=== PATIENT | female | born 1980 | race Caucasian/White ===

== ENCOUNTER → 2021-11-22 14:56 | Outpatient (CLI) | payer MEDICAID, SELFPAY ==
[2021-11-22 16:05] LABS: Free Thyroxine Index 2.5 ug/dL (5.93-13.13); T4 (Thyroxine) 8.2 ug/dl (5.53-11.0); Triiodothryronine (T3) Uptake 31 % (23.5-40.5)
[2021-11-22 16:18] LABS: Thyroid Stimulating Hormone 2.49 uIU/mL (0.465-4.68)
== END ==
PROVIDERS: Visit Provider Obstetrics & Gynecology
DX: N91.2 Amenorrhea, unspecified (principal)
CPT/HCPCS: 36415; 84436; 84443; 84479

== ENCOUNTER → 2021-11-30 08:35 | Outpatient (CLI) | payer MEDICAID, SELFPAY ==
--- NOTE | 2021-11-30 08:39 | US_ITS ---
FINAL REPORT CLINICAL HISTORY: abnormal vaginal bleeding FINDINGS: Transvaginal sonographic images of the pelvis were obtained. The uterus measures 9.4 x 5.9 x 4.2 cm. The endometrium measures 7 mm, which is within normal limits. There is a 1.6 cm submucosal fibroid. There is a small nabothian cyst. The right ovary measures 3.0 cm in length and left ovary measures 4.2 cm in length. Normal blood flow seen to the ovaries. There is a complex hypoechoic structure in the left ovary that measures about 2.8 cm in diameter and may represent a hemorrhagic cyst or endometrioma. There are some cysts or follicles in the right ovary. There is no evidence of free fluid. IMPRESSION: Complex hypoechoic structure in the left ovary, hemorrhagic cyst versus endometrioma. Consider follow-up in 6-10 weeks to ensure resolution. Uterine fibroid. Reviewed, Interpreted and Dictated by Ba Reyes MD Transcribed by Cece Yost Authenticated and [facility]
--- NOTE | 2021-11-30 09:05 | MM_ITS ---
PROCEDURE INFORMATION: Exam: US Right Breast, Complete MG Bilateral Diagnostic Breast Tomosynthesis Exam date and time: 11/30/2021 8:34 AM Age: 41 years old Clinical indication: Right breast palpable lump TECHNIQUE: Imaging protocol: Complete ultrasound of all four quadrants of the Right breast and the retroareolar regions, including ultrasound of the axilla when performed. Bilateral Diagnostic tomosynthesis and 2D mammography including computer-aided detection (CAD) when performed. Unilateral or bilateral exam. COMPARISON: No relevant prior studies available. FINDINGS: MAMMOGRAPHY: The breasts are extremely dense, which lowers the sensitivity of mammography. A skin marker was placed over the palpable abnormality in the right approximate 9 o'clock axis. Dense somewhat nodular parenchyma is identified in the region of palpable concern. There is no stellate mass, architectural distortion or suspicious microcalcifications in either breast to suggest malignancy. No skin thickening or axillary adenopathy. ULTRASOUND: Sonographic images of the right approximate 9 o'clock axis where the patient reports a palpable abnormality demonstrates 2 adjacent hypoechoic well-circumscribed solid masses measuring 1.5 x 1.2 x 1.4 cm and 0.7 x 0.8 x 0.5 cm respectively. In the right 10 o'clock axis 4 cm from the nipple is a third hypoechoic solid mass measuring 0.8 x 0.7 x 0.5 cm. Few scattered subcentimeter cysts.. No architectural distortion or acoustical shadowing. IMPRESSION: Palpable abnormality in the right breast corresponds to 2 adjacent probably benign solid masses, likely reflecting focal fibroadenomas. A third nonpalpable solid masses also identified. A six-month follow-up targeted right breast ultrasound is recommended to ensure stability of the 3 solid masses identified unless otherwise clinically indicated. ASSESSMENT: BI-RADS Category 3: Probably benign
== END ==
PROVIDERS: Visit Provider Obstetrics & Gynecology
DX: N93.9 Abnormal uterine and vaginal bleeding, unspecified (principal); N63.10 Unspecified lump in the right breast, unspecified quadrant
CPT/HCPCS: 76641; 76830; 77062; 77066; G0279

== ENCOUNTER → 2021-12-20 16:13 | Outpatient (CLI) | payer MEDICAID, SELFPAY ==
--- NOTE | 2021-12-20 16:20 | XR_ITS ---
FINAL REPORT CLINICAL HISTORY: RIGHT WRIST PAIN, BUMP ON POSTERIOR SIDE OF WRIST FINDINGS: RIGHT HAND Three views demonstrate no acute fracture or dislocation. The visualized joint spaces are normally aligned. The soft tissues are unremarkable. IMPRESSION: No acute bony abnormality. Reviewed, Interpreted and Dictated by Beka Berger III, MD Transcribed by Vianey Mitchell Authenticated and [facility]
== END ==
PROVIDERS: PCP Nurse Practitioner Family; Visit Provider Nurse Practitioner Family
DX: M25.531 Pain in right wrist (principal)
CPT/HCPCS: 73130

== ENCOUNTER → 2022-01-26 12:57 | Outpatient (CLI) | payer MEDICAID, SELFPAY ==
--- NOTE | 2022-01-26 12:58 | US_ITS ---
FINAL REPORT CLINICAL HISTORY: 8 week follow up COMPARISON: 11/30/2021 FINDINGS: Transvaginal sonographic images of the pelvis were obtained. The uterus measures 9.4 x 4.3 x 6.6 cm. Again identified is a uterine fibroid measuring up to 1.3 cm. The endometrium measures 8 mm in thickness, within normal limits. The right ovary measures 3.2 x 2.8 x 1.3 cm. The left ovary measures 3.8 x 2.2 x 2.3 cm. The left ovarian cyst seen on the prior exam has resolved. There is a small complex cyst in the right ovary measuring 1.6 cm. IMPRESSION: Uterine fibroid again identified. Left ovarian cyst has resolved. Complex cyst right ovary. Reviewed, Interpreted and Dictated by Beka Berger III, MD Transcribed by Analy Guerrero Authenticated and . [facility]
== END ==
PROVIDERS: PCP Nurse Practitioner Family; Visit Provider Obstetrics & Gynecology
DX: N83.209 Unspecified ovarian cyst, unspecified side (principal)
CPT/HCPCS: 76830

== ENCOUNTER → 2022-03-11 11:01 | Outpatient (CLI) | payer MEDICAID, SELFPAY ==
[2022-03-11 12:19] LABS: Basophils # 0.1 K/mm3 (0-0.2); Basophils % 0.8 % (0.1-2.0); Eosinophils # 0.3 K/mm3 (0.0-0.4); Eosinophils % 4.2 % (0.1-12.0); Hematocrit 41.3 % (37.0-47.0); Hemoglobin 13.6 g/dL (12.2-16.2); Lymphocytes # 1.7 K/mm3 (0.7-4.5); Lymphocytes % 21.4 % (10-50); Mean Platelet Volume 7.7 fl (7.4-10.4); Monocytes # 0.4 K/mm3 (0.1-1.0); Monocytes % 5.6 % (1.7-9.3); Neutrophils # 5.3 K/mm3 (1.8-7.8); Neutrophils % 67.9 % (37.0-80.0); Platelet Count 302 K/mm3 (142-424); Red Blood Count 4.39 M/mm3 (4.20-5.40); Red Cell Distribution Width 13.5 % (11.5-17.5); White Blood Count 7.8 K/mm3 (4.8-10.8)
[2022-03-11 12:35] LABS: Alanine Aminotransferase 13 U/L (12-78); Albumin Level 4.4 g/dl (3.5-5.0); Albumin/Globulin Ratio 1.8 (1.1-1.8); Alkaline Phosphatase 56 U/L (38-126); Anion Gap 12.5 mEq/L (5-15); Aspartate Amino Transferase 18 U/L (14-36); Bilirubin,Total 0.2 mg/dl (0.2-1.3); Blood Urea Nitrogen 16 mg/dl (7-17); Calcium 9.7 mg/dl (8.4-10.2); Carbon Dioxide 25 mmol/L (22.0-30.0); Chloride 105 mmol/L (98-107); Estimated Glomerular Filt Rate 93 ml/min (>60); GFR (African American) 112 ML/MIN (>60); Globulin 2.5 g/dL (1.3-3.2); Glucose 78 mg/dl (74-100); Potassium 4.5 mmoL/L (3.5-5.1); Sodium 138 mmol/L (136-145); Total Protein,Serum 6.9 g/dl (6.3-8.2)
[2022-03-11 13:01] LABS: HCG,Quantitative < 2 mIU/ml (0-5.42)
== END ==
PROVIDERS: PCP Nurse Practitioner Family; Visit Provider Obstetrics & Gynecology
DX: Z01.812 Encounter for preprocedural laboratory examination (principal); D25.9 Leiomyoma of uterus, unspecified
CPT/HCPCS: 36415; 80053; 84702; 85025

== ENCOUNTER 2022-03-16 06:03 | Day surgery (SDC) | payer MEDICAID, SELFPAY ==
[2022-03-15 09:49] VITALS: BMI 22.0
[2022-03-16] VITALS (10 sets, daily range): BP systolic 107–140; BP diastolic 65–78; PULSE 68–94; RESP 12–18; TEMP 36.4–43; O2SAT 96–100
--- NOTE | 2022-03-16 07:54 | EXP.ANES.CKL ---
[facility] Disclaimer: The information contained in this section may have been updated after the patient was seen, as this information can be updated by other users. Medical History Dysmenorrhea Menorrhagia Ovarian cyst Request for sterilization Uterine fibroid Surgical History H/O LEEP No significant past surgical history Family History Other Family history of asthma History of uterine cancer Social History Smoking Status: Current every day smoker tobacco type: e-cigarettes alcohol intake: never substance use type: former substance user, crack/cocaine and heroin current occupational status: employed Travel in the last 8 weeks: None [facility] Anesthesia Checklist Patient Identification Patient Identification: Arm Band and Verbal (Name & ) Structural Data Admitted From: Home Planned Operative Procedure/s: Laparscopic Salpingectomy/ Hysteroscopy Consent for Planned Operative Procedure(s) Verified: Yes Verified Documents: Surgical Consent NPO Status Verified Time NPO: 00:00 Chart Verification Results Verified: CBC and HCG Additional verifications Anesthesia Reactions: No Hx Blood Transfusions: No Blood Transfusion Reaction: No Airway Assessment C-Spine Mobility Assessed: Yes TMJ Mobility Assessed: Yes Dentition: Poor Dentition Neurological Assessment Level of Consciousness: Awake Anesthesia Plan Anesthesia Risk discussed: Yes ASA Class: II Anesthesia Type: General
--- NOTE | 2022-03-16 09:57 | EXP.OP.NOTE ---
Date of procedure: 03/16/22 Pre-op Diagnosis:: 1. Abnormal uterine bleeding 2. Menorrhagia? ? 3. Dysmenorrhea 4. Uterine fibroid 5. Ovarian cyst 6. Complete with childbearing, desires permanent sterilization ? ? Post-op Diagnosis:: 1. Abnormal uterine bleeding 2. Menorrhagia? ? 3. Dysmenorrhea 4. Uterine fibroid 5. Ovarian cyst 6. Complete with childbearing, desires permanent sterilization Procedure performed:: 1. Laparoscopy, bilateral salpingectomy 2. Hysteroscopy, D&C with Myosure and Novasure endometrial ablation Surgeon:: Tracy Llamas DO Commercial Crabber(s):: N/a COMMERCIAL CRABBER:: Yevgeniy Jade Anesthesia: GETA Estimated blood loss (mL): 5 Clinical Note:: Ms Luisa Araiza is a 41 yo P1021 who presents to [facility] for scheduled procedure. She reports periods are regular, monthly. Flow lasts about 4 days but is heavy and painful. She also complains of spotting the week before her period and sometimes after intercourse... this bleeding pattern has been present for about 2 years. She uses condoms for contraception. She tried Mirena IUD in the past and bled for one year straight. She then tried Paragard IUD and continued to bleed. She is complete with child bearing. Ultrasound 01/26/22 demonstrated?uterus measuring 9.4 x 4.3 x 6.6 cm.? Again identified is a uterine fibroid measuring up to 1.3 cm.? The endometrium measures 8 mm in thickness, within normal limits.? The right ovary measures 3.2 x 2.8 x 1.3 cm.? The left ovary measures 3.8 x 2.2 x 2.3 cm.? The left ovarian cyst seen on the prior exam has resolved.? There is a small complex cyst in the right ovary measuring 1.6 cm. TSH 11/22/21 was 2.49 She would like to proceed with laparoscopy, bilateral salpingectomy, hysteroscopy, D&C, Novasure endometrial ablation. Operative findings:: 1. Cervix appeared grossly normal. On bimanual exam, uterus midposition, anterverted and normal size and shape. No adnexal masses palpated 2.On laparoscopic exam, grossly normal appearing liver, gallbladder, stomach and bowel. Appendix not visualized. Grossly normal appearing uterus, bilateral fallopian tubes and ovaries. No evidence of adhesions or endometriosis 3. On hysteroscopic exam, bilateral tubal ostia easily visualized. Large amount of white fluffy endometrial tissue within the cavity. Operative note:: Risks, benefits and alternatives were discussed with the patient. Risks include but are not limited to bleeding, infection, damage to adjacent structures and VTE. Patient voiced understanding and agreed to proceed with surgery. She was wheeled back to the operating room and placed under general anesthesia without difficulty. She was placed in the dorsal lithotomy position and prepped and draped in normal sterile fashion. A straight catheter was used to drain the bladder prior to the start of the procedure. A bimanual exam was performed. A weighted Auvard was placed in the vaginal vault. A single tooth tenaculum was placed on the anterior lip of the cervix. Devens manipulator was inserted into the cervical canal and attached to the tenaculum. Weighted Auvard was removed from the vagina. Attention was then drawn to the abdomen. A 2cm infraumbilical incision was made. Veress needle was tested and inserted intraabdominally without difficulty. Opening pressure of 1mm Hg. Abdomen was then insulflated to 15 mm Hg. Trocar was inserted through infraumbilical incision and laparoscope was inserted. Abdomen was viewed in its entirety. See findings above. Pictures were taken. Left lower quadrant was transilluminated. 5 mm incision was made and 5 mm disposable blunt trocar was inserted into the abdomen under direct laparoscopic visualization. Trocar was removed and sleeve was left in place. Right lower quadrant was transilluminated. A 5 mm incision was made and a 5 mm disposable trocar was inserted into the abdomen under direct laparoscopic visualization. Obturator was removed and sleeve was left in place. Fimbriated end of right fallopian tube was gra
--- NOTE | 2022-03-16 10:06 | P.PNANES_ITS ---
[facility] Anesthesia Record Part I Anesthesia Record I Intake, IV Amount: 900 Estimated blood loss (mL): 5 Urine output (mL): 0 Blood Pressure: 140/70 SaO2: 97 Pulse Rate: 94 Respiratory Rate: 12 Temperature: 97.6 F Patient is:: Awake and Stable Stable to PACU at:: 10:05
--- NOTE | 2022-03-16 10:39 | SUR.PHASEI ---
1032 called and gave detailed report to Serena Diaz RN [id number] transported via stretcher to post op. vital signs stable. denies pain at this time. left in stable condition with Serena Diaz RN at bedside.
--- NOTE | 2022-03-17 07:30 | P.PNANES_ITS ---
[facility] Anesthesia Record Part II Anesthesia Record Part II Discharge Time: 10:38 Destination: Surgical Day Care (OP Surgery) PACU nurse assessment reviewed?: Yes Patient Condition:: Good Anesthesia Complications:: None Swallowing reflex intact?: Yes Cyanosis?: No Blood Pressure: 122/68 Pulse Rate: 70 Temperature: 98.8 F Mental Status: Alert & Oriented Pain level:: 0 Nausea and/or vomitting:: None Intake, IV Amount: 0
[2022-03-17 07:31] VITALS: BP 122/68; PULSE 70; TEMP 37.1
== END 2022-03-16 11:09 | disposition home or self-care (01) ==
PROVIDERS: PCP Nurse Practitioner Family; Visit Provider Obstetrics & Gynecology
PROC: (CPT 58563; principal; 2022-03-16 09:00)
DX: Z30.2 Encounter for sterilization (principal); N94.6 Dysmenorrhea, unspecified; N92.0 Excessive and frequent menstruation with regular cycle; D25.9 Leiomyoma of uterus, unspecified; N83.209 Unspecified ovarian cyst, unspecified side
CPT/HCPCS: 58563; 58661; J2405

== ENCOUNTER → 2022-09-09 15:29 | Outpatient (CLI) | payer MEDICAID, SELFPAY | PROVIDERS: Visit Provider Obstetrics & Gynecology | DX: N94.9 Unspecified condition associated with female genital organs and menstrual cycle (principal) | CPT/HCPCS: 87086 ==

== ENCOUNTER 2024-07-31 09:01 | Emergency (ER) | payer MEDICAID, SELFPAY ==
[2024-07-31 09:09] VITALS: BP 159/96; PULSE 64; RESP 16; TEMP 36.6; O2SAT 100; BMI 22.1
--- NOTE | 2024-07-31 09:43 | HMH.EDGENADL ---
Discharge Plan Disposition Patient Disposition: Home, Self-Care Prescriptions Prescriptions: No Action ciprofloxacin HCl 250 mg tablet 250 mg PO BID 5 Days Qty: 10 0RF Referrals Follow up/Referrals: Provider,Referral, MD [Primary Care Provider] - See instructions Activity Restrictions/Add. Instructions Additional Instructions/Restrictions: Follow-up with Dr. Xie. Information here. Erythromycin ointment 3-4 times daily for [address] Xie Address: [address] [place] [address] Clinical Impressions Clinical Impression: Foreign body in eyeball, left Qualifiers: Encounter type: initial encounter Qualified Code(s): S05.52XA - Penetrating wound with foreign body of left eyeball, initial encounter Print Language Print Language: Welsh Discharge ED Provider: Joseph Saenz General Adult HPI General Chief complaint: Eye Problems Stated complaint: something in left eye pain redness Time Seen by Provider: 07/31/24 09:03 Mode of Arrival: Ambulatory Source of Information: Patient Description of Symptoms (Recalled from ER Triage Doc. by RN): patient states on monday she was grinding when she felt like she got something in her eye she reports it feels scratchy and swollen History of Present Illness HPI narrative: Please note that above description of symptoms, in this electronic medical record under categorization of recalled from ER triage doctor by RN are reflective of an initial nursing assessment, however, is not reflective of my full history and physical exam that was personally taken and clarified. Consequentially, this preceding description of symptoms, which may include the patient's categorized chief complaint in the EMR, do not reflect my personal clinical impression, and the ultimate description of history of present illness and patient stated complaints should be deferred to this section of the note. Unless stated otherwise or congruent with this section of the note, additional signs, symptoms, or incongruence should be interpreted as inaccurate with my clinical impression. Related Data Previous Rx's ?Medication ?Instructions ?Recorded ciprofloxacin HCl 250 mg tablet 250 mg PO BID 5 days #10 tabs 09/09/22 Allergies Allergy/AdvReac Type Severity Reaction Status Date / Time No Known Allergies Allergy Verified 09/09/22 11:08 [facility] Disclaimer: The information contained in this section may have been updated after the patient was seen, as this information can be updated by other users. Medical History Dysmenorrhea Electronic cigarette use History of illicit drug use Menorrhagia Ovarian cyst Request for sterilization Uterine fibroid Surgical History H/O bilateral salpingectomy Laparoscopy, bilateral salpingectomy H/O LEEP 2009 History of hysteroscopy Hysteroscopy, D&C with Myosure and Novasure endometrial ablation No significant past surgical history Family History Other Family history of asthma History of uterine cancer Social History Smoking Status: Never smoker alcohol intake: never substance use type: former substance user, crack/cocaine and heroin current occupational status: employed Travel in the last 8 weeks: None Have you lived/traveled outside [place] in past 30 days?: No Contact w/someone who lives/traveled outside US past 30 days?: No Exposure to someone with infectious disease in past 14 days?: No Do you have a fever (greater than 100.4 F or 38 C)?: No Have you tested positive for COVID-19: No Exposed to someone with COVID-19 in past 14 days?: No Do you have a sore throat?: No Do you have a cough?: No Do you have any weakness?: No Do you have any diarrhea?: No Are you experiencing any unusual bleeding?: No Do you have any muscle aches/pain?: No Do you have any abdominal pain?: No Are you experiencing loss of taste or smell?: No ROS Obtained: Yes All systems reviewed & no additional complaints except as documented Physical Exam General General appearance: alert Head Head exam: atraumatic and normocephalic Eye Eye exam: Present PERRL, EOMI and conjunctival redness (Metallic foreign body with rust ring 12 o'clock position overlying iris. No evidence of hyphema, proptosis, entrapment, conjunctival hemorrhage, pupillary changes, cellulitic change, or otherwise irregular ocular findings. Fluorescein staining without otherwise focal uptake.) Neck Neck exam: Present normal inspection, full ROM and trachea midline Respiratory Respiratory exam: Absent respiratory distress, wheezes, stridor, accessory muscle use or prolonged expiratory phase Cardiovascular Cardiovascular exam: Present other (Pulses equal symmetric in upper and lower extremities) Abdominal Exam Abdominal exam: Present soft; Absent distention, tenderness or pulsatile mass Extremities Exam Extremities exam: Absent edema Neurological Exam Neurological exam: Present alert, oriented X3 and CN II-XII intact; Absent motor sensory deficit Skin Skin exam: Present warm and dry; Absent diaphoresis or erythema Medical Decision Making Medical Records Medical records reviewed: Yes I reviewed the patient's medical records. Screening: Per USPSTF and CDC recommendations, given the prevalence of disease in our region, it is our hospital?s policy to screen for HIV and viral Hepatitis for all patients aged 18 and over and those with ongoing risk factors. Primitivo Inquiry Pt receiving controlled substance: No Primitivo was queried for this patient: No Vital Signs: 07/31/24 09:09 Temperature 97.9 F Temperature Source Oral Pulse Rate [Right Radial] 64 Respiratory Rate 16 Blood Pressure [Right Arm] 159/96 H Blood Pressure Mean [Right Arm] 117 Blood Pressure Source [Right Arm] Automatic Cuff Blood Pressure Position [Right Arm] Sitting 02 Sat by Pulse Oximetry 100 Oxygen Delivery Method Room Air Orders (Tests/Meds): ED MEDICATIONS Discontinued Medications Generic Name Dose Route Start Last Admin Trade Name Freq PRN Reason Stop Dose Admin Erythromycin 0.5 gm 07/31/24 09:40 Erythromycin Base 1 Gm Oint...G. OP 07/31/24 09:41 ONCE ONE Fluorescein Sodium 1 mg 07/31/24 09:40 Fluorescein Sodium 1mg Strip OP 07/31/24 09:41 ONCE ONE Tetanus/Reduced Diphtheria/Acell Pertussis 0.5 ml 07/31/24 09:40 Tet/Diphth/Pert-Adult 0.5ml Syringe IM 07/31/24 09:41 .ONCE ONE Tetracaine HCl 0 ml 07/31/24 09:40 Tetracaine 0.5% Opth Nany 15ml OP 07/31/24 09:41 ONCE ONE ORDERS Category Date Time Status HIV Combo Stat Lab 07/31/24 09:16 Ordered Hepatitis C Ab Qual. W/ RFX Stat Lab 07/31/24 09:16 Ordered Medical Decision Narrative: 43-year-old female presenting with metal foreign body in her eye. This happened 2 days prior to this she was grinding wearing safety glasses, but something went throughand hit her in the eye. Did not initially start hurting until yesterday, 07/30 it was uncomfortable and scratchy/had foreign body sensation. Today it was hurting, red. Came in for further evaluation. Does not member last tetanus, does not wear contacts. States that she is not having vision changes and really minimal pain. History was obtained via conversation with patient. On arrival, patient hemodynamically stable, alert, oriented x4, appropriate, GCS 15, moving all extremities spontaneously, pupils equal and reactive to light. Full physical exam performed and significant for Metallic foreign body with rust ring 12 o'clock position overlying iris. No evidence of hyphema, proptosis, entrapment, conjunctival hemorrhage, pupillary changes, cellulitic change, or otherwise irregular ocular findings. Fluorescein staining without otherwise focal uptake. Visual acuity reportedly intact and normal. Differential includes foreign body, among others. Tetracaine drops were placed, patient had immediate relief. No evidence of consensual photophobia. Anterior chambers quiet and clear. Foreign body was removed as well as a rust ring with 18-gauge needle and cotton-tipped applicator. Given patient presentation, workup, history, this most likely represents metallic foreign body of the left eye with rust ring. Patient given erythromycin ointment. Close outpatient follow-up with Dr. Xie was recommended and information was provided to patient. Because patient at baseline without signs or symptoms of clinical decompensation, deemed appropriate for discharge. Results were relayed to patient who voiced understanding and were agreeable to outpatient management and follow up. I discussed my clinical impression with patient and answered all questions. At this time, the evidence for any other entities in the differential is insufficient to warrant any further testing or ED observation. This was explained as well. Advisory was given that persistent or worsening symptoms require further evaluation. I confirmed the understanding of this discussion. Steel Layout Worker disclaimer Much of this encounter note is an electronic creative strategist spoken language to printed text. Electronic creative strategist of the spoken language may permit errors. Although I have reviewed the note, some errors may still exist. Critical Care Critical Care Time Critical Care Time: No
[2024-07-31] MEDS: FLUORESCEIN SODIUM 1MG STRIP 1 MG OP (09:45)
[2024-07-31] MEDS: TET/DIPHTH/PERT-ADULT 0.5ML SYRINGE 0.5 ML IM (09:45)
[2024-07-31 09:49] VITALS: BP 148/94; PULSE 60; RESP 14; TEMP 36.6; O2SAT 100
[2024-07-31] MEDS: TETRACAINE 0.5% OPTH SOL 15ML OP (09:49)
[2024-07-31] MEDS: ERYTHROMYCIN BASE 1 GM OINT...G. 0.5 GM OP (09:49)
== END 2024-07-31 09:53 | disposition home or self-care (01) ==
PROVIDERS: Emergency Provider Emergency Medicine
DX: S05.52XA Penetrating wound with foreign body of left eyeball, initial encounter (principal); W45.8XXA Other foreign body or object entering through skin, initial encounter; Z23 Encounter for immunization
CPT/HCPCS: 65220; 90471; 90715; 99283